=== PATIENT | male | born 1990 | race Caucasian/White ===

== ENCOUNTER → 2016-10-30 | Outpatient (CLI) | payer OTHER ==
--- NOTE | 2016-10-31 13:56 | US ---
EXAM DATE: 10/30/16 PATIENT'S AGE: 25 Patient: MALIK LANGE Facility: [place], [place] Site . Site : 1990 Study: US Abdomen [id number]/10/2017 3:08:03 PM Ordering Physician: Aleshia Argueta Final Report: Indication: History of umbilical hernia repair 1 year prior. Pain in the umbilical region following lifting. Technique: Ultrasound abdomen limited Comparison: None Findings: Patient was scanned in the area the emboli kiss with no sonographic evidence for under local or paraumbilical hernia with and without Valsalva. No abnormalities involving the visualized anterior abdominal wall. Impression: No sonographic evidence for an umbilical or paraumbilical hernia with and without Valsalva. Dictated by Satish Salazar MD @ Oct 30 2016 9:04PM (Electronic Signature) Report Signed by Proxy and Original Signed Document filed in the Medical Record. [facility]
== END ==
LOC: MW.US 14:23
PROVIDERS: ATTEND Nurse Practitioner Family
DX: K42.9 Umbilical hernia without obstruction or gangrene (principal)
CPT/HCPCS: 76705; 76705-26

== ENCOUNTER 2018-09-01 10:59 | Emergency (ER) | payer BC, OTHER ==
--- NOTE | 2018-09-01 11:18 | EDM.PDOC ---
ED HPI GENERAL MEDICAL PROBLEM - General Chief Complaint: General Stated Complaint: CHILLS BODY ACHES Time Seen by Provider: 09/01/18 11:17 Source of Information: Reports: Patient History Limitations: Reports: No Limitations - History of Present Illness INITIAL COMMENTS - FREE TEXT/NARRATIVE: HISTORY AND PHYSICAL: History of present illness: Patient is a 27-year-old male here with complaint of right shoulder and chest pain. He states he woke up with it this morning, took a muscle relaxer which did help some. He has been sick for the past 4 days with cough, sore throat, congestion, fevers. Denies nausea, vomiting, abdominal pain, diarrhea, shortness of breath. Review of systems: As per history of present illness and below otherwise all systems reviewed and negative. Past medical history: As per history of present illness and as reviewed below otherwise noncontributory. Surgical history: As per history of present illness and as reviewed below otherwise noncontributory. Social history: No reported history of drug or alcohol abuse. Family history: As per history of present illness and as reviewed below otherwise noncontributory. Physical exam: General: Patient sitting comfortably in no acute distress and nontoxic appearing HEENT: Atraumatic, normocephalic, pupils reactive, negative for conjunctival pallor or scleral icterus, mucous membranes moist, throat clear, neck supple, nontender, trachea midline. No meningeal signs. Lungs: Clear to auscultation, breath sounds equal bilaterally, chest nontender. Heart: S1S2, regular, negative for clicks, rubs, or overt murmur. Abdomen: Soft, nondistended, nontender. Negative for masses or hepatosplenomegaly. Negative for costovertebral tenderness. Pelvis: Stable nontender. Genitourinary: Deferred. Rectal: Deferred. Spine: No spinal tenderness to palpation or step offs. Pain to palpation with muscle spasm noted of the right cervical paraspinals and in to the supraspinatus and right anterior chest over pectoralis. Extremities: Atraumatic, negative for cords or calf pain. Neurovascular unremarkable. Neuro: Awake, alert, oriented. Cranial nerves II through XII unremarkable. Cerebellum unremarkable. Motor and sensory unremarkable throughout. Exam nonfocal. Notes: Diagnostics: Influenza, strep, CXR Therapeutics: Toradol 60mg IM Prescriptions: None Impression: Muscle spasm Plan: 1. Heat, tylenol, and motrin as instructed. Take your flexeril as needed as prescribed. 2. Follow up with primary care provider 3. Return to ED as needed as discussed Definitive disposition and diagnosis as appropriate pending reevaluation and review of above. Thoracic Pain Score (Numeric/FACES): 5 - Related Data Allergies Allergy/AdvReac Type Severity Reaction Status Date / Time codeine Allergy Difficulty Verified 09/01/18 11:19 Breathing penicillin Allergy Difficulty Verified 09/01/18 11:19 Breathing Home Meds: Home Meds Cyclobenzaprine [Flexeril] 5 mg PO ASDIRECTED 09/01/18 [History] Past Medical History HEENT History: Reports: None Cardiovascular History: Reports: None Respiratory History: Reports: None Gastrointestinal History: Reports: None Genitourinary History: Reports: None Musculoskeletal History: Reports: Fracture Other Musculoskeletal History: left arm, left leg, left foot, left arm, sternum Neurological History: Reports: None Psychiatric History: Reports: None Endocrine/Metabolic History: Reports: None Hematologic History: Reports: None Immunologic History: Reports: None Oncologic (Cancer) History: Reports: None Dermatologic History: Reports: None - Past Surgical History Head Surgeries/Procedures: Reports: None HEENT Surgical History: Reports: None Cardiovascular Surgical History: Reports: None Respiratory Surgical History: Reports: None GI Surgical History: Reports: Appendectomy Male Surgical History: Reports: None Endocrine Surgical History: Reports: None Neurological Surgical History: Reports: None Musculoskeletal Surgical History: Reports: None Oncologic Surgical History: Reports: None Dermatological Surgical History: Reports: None ED ROS ENT - Review of Systems Review Of Systems: ROS reveals no pertinent complaints other than HPI. ED EXAM, ENT - Physical Exam Exam: See Below (see Dictation) Course - Vital Signs Last Recorded V/S: Last Vital Signs Temp 98.0 F 09/01/18 11:14 Pulse 65 09/01/18 11:14 Resp 18 09/01/18 11:14 BP 137/83 09/01/18 11:14 Pulse Ox 96 09/01/18 11:14 - Orders/Labs/Meds Orders: Active Orders 24 hr Category Date Time Status Chest 1V Frontal [CR] Stat Exams 09/01/18 11:27 Taken CULTURE STREP A CONFIRMATION [RM] Stat Lab 09/01/18 11:15 Results STREP SCRN A RAPID W CULT CONF [RM] Stat Lab 09/01/18 11:15 Results Meds: Medications Discontinued Medications Generic Name Dose Route Start Last Admin Trade Name Michelle PRN Reason Stop Dose Admin Ketorolac Tromethamine 60 mg 09/01/18 12:35 Toradol IM 09/01/18 12:36 ONETIME ONE Departure - Departure Time of Disposition: 12:43 Disposition: Home, Self-Care 01 Condition: Good Clinical Impression: Muscle spasm - Discharge Information Referrals: PCP,None [Primary Care Provider] - Forms: ED Department Discharge Additional Instructions: The following information is given to patients seen in the emergency department who are being discharged to home. This information is to outline your options for follow-up care. We provide all patients seen in our emergency department with a follow-up referral. The need for follow-up, as well as the timing and circumstances, are variable depending upon the specifics of your emergency department visit. If you don't have a primary care physician on staff, we will provide you with a referral. We always advise you to contact your personal physician following an emergency department visit to inform them of the circumstance of the visit and for follow-up with them and/or the need for any referrals to a consulting specialist. The emergency department will also refer you to a specialist when appropriate. This referral assures that you have the opportunity for follow-up care with a specialist. All of these measure are taken in an effort to provide you with optimal care, which includes your follow-up. Under all circumstances we always encourage you to contact your private physician who remains a resource for coordinating your care. When calling for follow-up care, please make the office aware that this follow-up is from your recent emergency room visit. If for any reason you are refused follow-up, please contact the [facility] Emergency Department at and asked to speak to the emergency department charge nurse. [facility] [address] [place] [id number] [facility] [address] [place] [id number] 1. Heat, tylenol, and motrin as instructed. Take your flexeril as needed as prescribed. 2. Follow up with primary care provider 3. Return to ED as needed as discussed - My Orders Last 24 Hours: My Active Orders 09/01/18 11:15 CULTURE STREP A CONFIRMATION [RM] Stat STREP SCRN A RAPID W CULT CONF [RM] Stat 09/01/18 11:27 Chest 1V Frontal [CR] Stat - Assessment/Plan Last 24 Hours: My Active Orders 09/01/18 11:15 CULTURE STREP A CONFIRMATION [RM] Stat STREP SCRN A RAPID W CULT CONF [RM] Stat 09/01/18 11:27 Chest 1V Frontal [CR] Stat
[2018-09-01 11:19] VITALS: BP 137/83
[2018-09-01] MEDS ORDERED: Ketorolac 60 MG/2 ML SDV IM ONE (12:35)
--- NOTE | 2018-09-01 12:39 | CR ---
INDICATION: Pain. Shortness of breath. FINDINGS: A portable AP view of the chest was obtained. The cardiac silhouette and pulmonary vasculature are within normal limits. The lungs are clear bilaterally. IMPRESSION: No evidence of acute pulmonary disease. Dictated by Prashant Retana MD @ 09/01/2018 12:37:03 PM Dictated by: Prashant Retana MD @ 09/01/2018 12:37:17 (Electronically Signed)
== END 2018-09-01 13:15 | disposition home or self-care (01) ==
LOC: MW.ED 10:59
DX: M62.838 Other muscle spasm (principal); Z88.5 Allergy status to narcotic agent; Z88.0 Allergy status to penicillin
CPT/HCPCS: 71045; 87081; 87804; 87880; 96372; 99283; J1885

== ENCOUNTER 2021-02-27 00:48 | Emergency (ER) | payer SELFPAY ==
[2021-02-27 01:21] VITALS: BP 157/73; PULSE 84
[2021-02-27] MEDS ORDERED: Ketorolac 15 MG/ML SDV IM ONE (01:47)
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
== END 2021-02-27 03:32 | disposition home or self-care (01) ==
LOC: MW.ED 00:48
DX: S20.212A Contusion of left front wall of thorax, initial encounter (principal); Z88.0 Allergy status to penicillin; Z88.5 Allergy status to narcotic agent; W20.8XXA Other cause of strike by thrown, projected or falling object, initial encounter
CPT/HCPCS: 71101; 96372; 99283; J1885

== ENCOUNTER 2023-08-29 10:30 | Emergency (ER) | payer BC ==
[2023-08-29 11:06] LABS: BASOPHILS ABSOLUTE AUTO 0.03 K/uL (0.00-0.20); BASOPHILS PERCENT AUTO 0.3 % (0.0-1.0); EOSINOPHILS ABSOLUTE AUTO 0.09 K/uL (0.00-0.45); HEMATOCRIT 50.3 % (42.0-52.0); HEMOGLOBIN 17.8 g/dL (14.0-18.0); IMMATURE GRAN ABSOLUTE AUTO 0.02 K/uL (0.00-0.05); IMMATURE GRAN PERCENT AUTO 0.2 % (0.0-0.4); LYMPHOCYTES ABSOLUTE AUTO 2.69 K/uL (1.00-4.80); LYMPHOCYTES PERCENT AUTO 29.8 % (24.0-44.0); MEAN CORPUSCULAR HEMOGLOBIN 30.2 pg (28.0-32.0); MEAN CORPUSCULAR HGB CONC 35.4 g/dL (32.0-36.0); MEAN CORPUSCULAR VOLUME 85.4 fL (83.0-99.0); MEAN PLATELET VOLUME 9.9 fL (9.4-12.4); MONOCYTES ABSOLUTE AUTO 0.95 K/uL (0.00-0.80); MONOCYTES PERCENT AUTO 10.5 % (0.0-8.0); NEUTROPHILS ABSOLUTE AUTO 5.24 K/uL (1.80-7.70); NEUTROPHILS PERCENT AUTO 58.2 % (41.0-71.0); PLATELET COUNT,PLT 282 K/uL (150-400); RED BLOOD CELL COUNT 5.89 M/uL (4.52-5.90); WHITE BLOOD CELL COUNT,WBC 9.02 K/uL (3.9-11.3)
[2023-08-29] MEDS: Sodium Chloride 0.9% 2.5 ML Syringe FLUSH PRN (11:11)
[2023-08-29] MEDS: Sodium Chloride 0.9% 10 ML Syringe FLUSH PRN (11:11)
[2023-08-29 11:37] LABS: A/G RATIO 1.2 (0.9-1.6); ALBUMIN 4.6 g/dL (3.4-5.0); CARBON DIOXIDE,CO2 25.4 mmol/L (21.0-32.0); CREATININE 1.1 mg/dL (0.8-1.3); EST CRCL DRUG DOSING (CG) 114.17 mL/min; POTASSIUM,K 4.6 mmol/L (3.5-5.1); PROTEIN TOTAL,TP 8.3 g/dL (6.4-8.2)
[2023-08-29 11:41] LABS: MAGNESIUM 2.1 mg/dL (1.8-2.4)
[2023-08-29 13:35] VITALS: BP 136/94; PULSE 84
== END 2023-08-29 13:39 | disposition home or self-care (01) ==
LOC: MW.ED 10:30
DX: R42 Dizziness and giddiness (principal); Z90.49 Acquired absence of other specified parts of digestive tract; Z88.0 Allergy status to penicillin; Z88.5 Allergy status to narcotic agent
CPT/HCPCS: 36415; 71046; 80053; 83735; 84484; 85025; 93005; 99285; J3490; 93010; 99282

== ENCOUNTER 2025-05-30 09:08 | Emergency (ER) | payer BC ==
[2025-05-30 09:14] VITALS: BP 138/85; PULSE 76
== END 2025-05-30 09:29 | disposition home or self-care (01) ==
LOC: MW.ED 09:08
DX: L03.221 Cellulitis of neck (principal); Z90.49 Acquired absence of other specified parts of digestive tract; Z88.0 Allergy status to penicillin; Z88.5 Allergy status to narcotic agent; Z79.899 Other long term (current) drug therapy
CPT/HCPCS: 99283